=== PATIENT | female | born 1950 | race Caucasian/White ===

== ENCOUNTER 2024-12-14 12:05 | Outpatient (CLI) | payer MEDICARE, SELFPAY ==
--- OUTSIDE RECORDS SUMMARY | 2024-11-08 14:30 | XMS_ITS | Encounter Summary ---
Author Organization [facility] Address [address] [place] [address] Care Team Providers Care Route Carrier Name Role Phone Lakshmi Reynolds TRIM SAWYER Primary Care Provider [phone] Reason for Visit * Reason Comments Difficulty Urinating Encounter Details Date Type Department Care Team (Late st Contact Info) Description 2024 2:30 PM EDT Office Visit [facility] PRIMARY CARE [address] [place] [phone] Lakshmi Reynolds, TRIM SAWYER [address] [place], [place] [id number] Dysuria (Primary Dx); Acute cystitis with hematuria Social History Tobacco Use Types Packs/Day Years Used Date Smoking Tobacco: Never Passive Smoke Exposure: Past Smokeless Tobacco: Never Alcohol Use Standard Drinks/Week Comments Never 0 (1 standard drink = 0.6 oz pur e alcohol) does not utilize alcohol PHQ-2 Answer Date Recorded Retired PHQ-9: Brief Depression Severity Measure Score 0 09/15/2022 PHQ-2 Answer Date Recorded Patient Health Questionnaire-2 Score 0 2024 Comments Unknown Sex and Gender Information Value Date Recorded Sex Assigned at Not on file Legal Sex Female 9:58 AM EDT Gender Identity Not on file Sexual Orientation Not on file documented as of this encounter Last Filed Vital Signs Vital Sign Reading Time Taken Comments Blood Pressure - - Pulse 74 2024 2:47 PM EDT Temperature 36.6 C (97.9 F) 2024 2:47 PM EDT Respiratory Rate 16 2024 2:47 PM EDT Oxygen Saturation 98% 2024 2:47 PM EDT Inhaled Oxygen Concentration - - Weight 86.2 kg (190 lb) 2024 2:47 PM EDT Height 157.5 cm (5' 2 ) 2024 2:47 PM EDT Body Mass Index 34.75 2024 2:47 PM EDT documented in this encounter Functional Status documented as of this encounter Progress Notes * Lakshmi Reynolds APRN - 11/16/2024 7:35 AM EDTAssociated Problem(s): Acute cystitis with hematuria Patient urinalysis in office today with 1+ blood small leukocytes and positive nitrites. Patient states she had muscular pain in the past. Her last UTI was unresponsive to Macrobid. Will treat today with tetracycline 500 mg 3 times daily for 7 days. Patient has prescription for Pyridium to help with discomfort until antibiotics take effect. Patient regularly takes cranberry pills and has recentlyincreased her water consumption. Advised if no improved * Lakshmi Reynolds APRN - 2024 2:30 PM EDT Images from the original note were not included. Office Note Name: Arely Mendoza : 1950 Chief Complaint Difficulty Urinating Subjective History of Present Illness: Arely Mendoza is a 74 y.o. female who presents today for evaluation of possible UTI. Patient states 4days ago she began to experience random chilling on awakening Tuesday morning she continued to haveepisodes of chilling and developed burning with urination. She denies any different low back pain, she suffers from back pain at baseline for many years. No rafia hematuria, feelings of urinary retention. She does endorse frequency and urgency. 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 Headache ? Hypertension Hypothyroidism Possible occult hypothyroidism. IBS (irritable bowel syndrome) History of IBS, followed by Dr. Caro Microscopic hematuria Chronic microscopic hematuria, fully evaluated Obesity Caused by meds and illness Pain in right shoulder Renal insufficiency 50???s Subacute and chronic vaginitis Urinary tract infection Ongoing Past Surgical History: Procedure Laterality Date CHOLECYSTECTOMY COLONOSCOPY 2006, diverticulosis and internal hemorrhoids. COLONOSCOPY 10/04/2012 Dr. Caro, revealing a polyp in the cecum, polyp in the descending colon, both removed, moderate internal hemorrhoids, small anal fissure, but no specific mention of diverticulosis, rec for rpt colonoscopy in 5yrs. colonoscopy 02/03/2015 bc of the issue of pain in the LLQ of the abdomen rectal bleedi ng.This proved to show only mild diverticulosis in the sigmoid colon.Rec was for followup in 5yrs. ENDOSCOPY 2006 ENDOSCOPY EGD 02/03/2015: Hiatus hernia. Esophagitis and distal third of the esophagus. Esophageal ring, dilated Mild gastritis. Normal duodenum MUSCLE BIOPSY SPINE SURGERY 2014 & 2016 Family History Problem Relation Age of Onset Colon polyps Sister Heart disease Other Asthma Father Hyperlipidemia Father Vital Signs Pulse 74 Temp 97.9 ??F (36.6 ??C) (Temporal) Resp 16 Ht 157.5 cm (62 ) Wt 86.2 kg (190 lb) SpO2 98% BMI 34.75 kg/m?? Estimated body mass index is 34.75 kg/m?? as calculated from the following: Height as of this encounter: 157.5 cm (62 ). Weight as of this encounter: 86.2 kg (190 lb). Facility age limit for growth %yusuf is 20 years. Physical Exam Vitals reviewed. Cardiovascular: Rate and Rhythm: Normal rate and regular rhythm. Pulses: Normal pulses. Heart sounds: Normal heart sounds. Pulmonary: Effort: Pulmonary effort is normal. Breath sounds: Normal breath sounds. Abdominal: General: Bowel sounds are normal. Palpations: Abdomen is soft. Tenderness: There is no abdominal tenderness. There is no right CVA tenderness, left CVA tenderness, guarding or rebound. Skin: General: Skin is warm and dry. Neurological: Mental Status: She is alert and oriented to person, place, and time. POCT Results (if applicable): Results for orders placed or performed in visit on 11/08/24 POC Urinalysis Dipstick Collection Time: 11/08/24 2:58 PM Specimen: Urine Result Value Ref Range Glucose, UA Negative Negative mg/dL Bilirubin Negative Negative Ketones, UA Negative Negative Specific Sturgeon 1.030 1.005 - 1.030 Blood, UA 1+ (A) Negative pH, Urine 5.5 5.0 - 8.0 Protein, POC 1+ (A) Negative mg/dL Urobilinogen, UA 0.2 E.U./dL Normal, 0.2 E.U./dL Leukocytes Small (1+) (A) Negative Nitrite, UA Positive (A) Negative Assessment and Plan Diagnoses and all orders for this visit: 1. Dysuria (Primary) - POC Urinalysis Dipstick 2. Acute cystitis with hematuria Assessment & Plan: Patient urinalysis in office today with 1+ blood small leukocytes and positive nitrites. Patient states she had muscular pain in the past. Her last UTI was unresponsive to Macrobid. Will treat today with tetracycline 500 mg 3 times daily for 7 days. Patient has prescription for Pyridium to help with discomfort until antibiotics take effect. Patient regularly takes cranberry pills and has recentlyincreased her water consumption. Advised if no improved Orders: - tetracycline (ACHROMYCIN,SUMYCIN) 500 MG capsule; Take 1 capsule by mouth 3 (Three) Times a Day for 7 days. Dispense: 21 capsule; Refill: 0 Follow Up Return if symptoms worsen or fail to improve. Lakshmi Reynolds APRN documented in this encounter Plan of Treatment Upcoming Encounters Date Type Department Care Team (Late st Contact Info) Description 01/07/2025 2:00 PM EDT Office Visit [facility] PRIMARY CARE [address] [place] [phone] Lakshmi Reynolds APRN [address] [place] [address] 04/08/2025 2:30 PM EST Office Visit [facility] RHEUMATOLOGY [address] [place] [phone] Cordell Manzano MD [address] [place], [place] [id number] documented as of this encounter Procedures Procedure Name Priority Date/Time Associated Diagnosis Comments POCT URINALYSIS DIPSTICK, MANUAL Routine 2024 2:58 PM EDT Dysuria documented in this encounter Results * (ABNORMAL) POC Urinalysis Dipstick (2024 2:58 PM EDT) Glucose, UA Negative Negative mg/dL [facility] Bilirubin Negative Negative [facility] Ketones, UA Negative Negative [facility] Specific Sturgeon 1.030 1.005 - 1.030 [facility] Blood, UA 1+(A) Negative [facility] pH, Urine 5.5 5.0 - 8.0 [facility] Protein, POC 1+(A) Negative mg/dL [facility] Urobilinogen, UA 0.2 E.U./dL Normal, 0.2 E.U./dL [facility] Leukocytes Small (1+)(A) Negative [facility] Nitrite, UA Positive(A) Negative [facility] Urine 2024 2:58 PM EDT us Lakshmi Reynolds TRIM SAWYER POINT OF CARE TEST ORDERABL ES Final Result [facility]
[address] [place] [address], documented in this encounter Visit Diagnoses Diagnosis Dysuria- Primary Acute cystitis with hematuria documented in this encounter Care Teams Route Carrier Relationship Specialty Start Date End Date Lakshmi Reynolds APRN [address] [place], [place] [phone] PCP - General Family Medicine 01/06/22 documented as of this encounter
--- OUTSIDE RECORDS SUMMARY | 2024-12-03 13:30 | XMS_ITS | Encounter Summary ---
Author Organization Healthcare Address [address] [place] [address] Care Team Providers Care Miner Pick Name Role Phone Ahmet Mercado MD Primary Care Provider [phone] Lakshmi Reynolds FIRE PATROL Unavailable [phone] Encounter Details Date Type Department Care Team (Latest Contact Info) Description 12/03/2024 1:30 PM EDT Office Visit [facility] Audiology [address] [place] [address] Valerie Costello, AuD [address] [place] [address] Sensorineural hearing loss, bilateral; Tinnitus of both ears Social History Tobacco Use Types Packs/Day Years Used Date Smoking Tobacco: Never Smokeless Tobacco: Never Alcohol Use Standard Drinks/Week Comments No 0 (1 standard drink = 0.6 oz pur e alcohol) PHQ-2 Answer Date Recorded Patient Health Questionnaire-2 Score 0 07/16/2024 PHQ-2A Answer Date Recorded Patient Health Questionnaire-2 Score 0 01/05/2023 Comments No Sex and Gender Information Value Date Recorded Sex Assigned at Not on file Legal Sex Female 7:32 PM EDT Gender Identity Not on file Sexual Orientation Not on file documented as of this encounter Miscellaneous Notes * Progress Notes - Valerie Costello, AuD - 12/03/2024 1:30 PM EDT Images from the original note were not included. AUDIOLOGIC EVALUATION Referring Provider: Ahmet Mercado MD HISTORY: Arely Mendoza is a 74 y.o. female seen today for an audiologic evaluation. She was last seen on 11/15/2023 with normal hearing through 6000 Hz sloping to moderately- severe SNHL bilaterally. Today she reported stable hearing with occasional tinnitus bilaterally. No other significant audiological historyor changes were reported. RESULTS: Otoscopy: Clear external auditory canals bilaterally Audiogram: Method: Conventional Audiometry Transducer: inserts Results: Today's comprehensive audiologic evaluation demonstrated normal hearing sloping to moderately-severe sensorineural hearing loss bilaterally. Stable compared to Word Recognition: RE: 100%; Excellent LE: 100%; Excellent SRT/Audiogram Agreement: Good Reliability: Good RECOMMENDATIONS: - Re-evaluate in 1 year per patient request Valerie Medellin, [facility] Consumer Services Advisor documented in this encounter Plan of Treatment Upcoming Encounters Date Type Department Care Team ([facility] st Contact Info) Description 04/15/2025 12:00 PM EST Office Visit [facility] Nephrology, Bone & Mineral Metabolism [address], [address] [place] [address] Millie Garcia MD [address] [place] [address] 08/15/2025 3:00 PM EDT Ovarian Cancer Screening [facility] Gynecology [address] [facility] [place] [address] Scheduled Orders Name Type Priority Associated Diagnoses Orde r Schedule Hearing examination 30 Audiology Routine Sensorineural hearing loss, bilateral Expected: 12/03/2025, Expires: 06/02/2026 documented as of this encounter Visit Diagnoses Diagnosis Sensorineural hearing loss, bilateral Tinnitus of both ears Unspecified tinnitus documented in this encounter Additional Health Concerns Assessment Noted Time A fall risk assessment has been complete d for the patient 07/16/2024 12:08 PM EDT A Body Mass Index follow-up plan has been documented for the patient 12/03/2024 3:36 PM EDT documented as of this encounter Care Teams Miner Pick Relationship Specialty Start Date End Date Ahmet Mercado MD [address] [place] [id number] PCP - General 12/14/21 Lakshmi Reynolds APRN [address] [place] [phone] Referring Physician 11/15/24 documented as of this encounter
[2024-12-14 12:12] LABS: Adenovirus F 40/41, stool Not Detected (NotDetected); Clostridium Difficile A/B, PCR Not Detected (NotDetected); Cyclospora Cayetanesis Not Detected (NotDetected); Plesimonas Shigalloides, PCR Not Detected (NotDetected); Salmonella, PCR Not Detected (NotDetected); Shiga-like toxin E coli Not Detected (NotDetected); Shigella Enterovasive E coli Not Detected (NotDetected); Vibrio, PCR Not Detected (NotDetected); Yersinia Entercolitica, PCR Not Detected (NotDetected)
--- OUTSIDE RECORDS SUMMARY | 2024-12-14 12:12 | XMS_ITS | Clinical Summary ---
Author Organization [facility] Address [address] [place] [address] Care Team Providers Care Paper Folder Name Role Phone Ahmet Mercado MD Primary Care Provider [phone] Lakshmi Reynolds COTTAGE SUPERVISOR Unavailable [phone] Allergies Active Allergy Reactions Criticality Noted Date Comments Acetaminophen Nausea 11/23/2021 Amlodipine Shortness of breath,Swelling High 023 Hydrocodone Unknown - Patient st ates they do not know rxn details Low 02/14/2017 Ibuprofen Other - please docum ent in the comment field Low 01/02/2024 Naproxen Unknown - Patient st ates they do not know rxn details Low 02/14/2017 Olmesartan Rash Low 10/26/2023 Other Other - please docum ent in the comment field Medium 11/16/2021 QNasl Penicillins Shortness of breath, Other - please document in the comment field,Rash,Unknown - Patient states they do not know rxn details High 10/30/2013 Tramadol Other - please docum ent in the comment field Low 01/02/2024 Medications naloxegol oxalate (Movantik) 12.5 MG tablet Take 12.5 mg by mouth 1 (one) time each day. 2 Active zolpidem (Ambien) 5 MG tablet TAKE 1 TABLET BY MOUTH AT NIGHT NEEDED FOR INSOMNIA 3 Active oxyCODONE (Roxicodone) 5 MG immediate release tablet Take 0.5 tablets (2.5 mg) by mouth 1 (one) time each day. Patient reports she takes half a tablet. 3 Active estradiol (Estrace) 0.1 MG/GM vaginal cream INSERT 1 GRAM VAGINALLY UP TO 3 TIMES WEEKLY 5 Active famotidine (Pepcid) 10 MG tablet Take 1 tablet by mouth twice a day. Active telmisartan (MIcarDIS) 80 MG tablet Take 1 tablet by mouth daily. 90 tablet 3 5 Active metoprolol tartrate (Lopressor) 50 MG tablet Take 1 tablet by mouth 2 times a day. 180 tablet 3 5 Active Active Problems Problem Noted Date Diagnosed Date Urge incontinence 09/15/2022 01/05/2023 Overview (01/05/2023): Last Assessment & Plan: Patient with complaints of urge incontinence today. This has occurred intermittently for several years now but seems to be more frequent in nature. He notes particularly if she has been sitting for long periods of time, when she stands up she has been able to make it to the bathroom. No dysuria, burning or low back pain. -We will initiate Myrbetriq 25 mg once daily and monitor for effect Dysuria 09/06/2022 01/05/2023 Overview (01/05/2023): Last Assessment & Plan: complaints of difficulty urinating. She notes a few days ago she began to have mild burning with urination as well as some suprapubic pressure. Last night she had significant nocturia/frequency prompting her to come in for evaluation today. sHe has history of chronic UTI, having been evaluated by urology in the past without abnormal findings on cystoscopy, was recently treated with ciprofloxacin on June 29. She denies any vaginal discharge or itching. She does note she feels like it may have been caused by getting in the hot tub with her granddaughter last week. Denies fever or back pain different from her baseline pain. Urinalysis showing only mild leukocytes, likely contaminated specimen. We will send for culture to definitively rule out UTI. -Encouraged ongoing increased water consumption -We will send prescription for Pyridium for symptom management culture results are pending -In regards to cranberry juice consumption she notes it is hard on her stomach. Is willing to try cranberry pills. -If urine culture is inconclusive and she continues to have symptoms may need to be seen back to urology for further evaluation Subacromial bursitis of right shoulder joint 01/05/2023 Overview (01/05/2023): Last Assessment & Plan: Patient complaints of right shoulder tenderness and positional pain for the last 2 weeks. Pain is most significant with raising her arm above her head. She has had similar issues in the past. Reports her current pain receives good benefit from hot compress, however makes note that her regularly scheduled oxycodone provided no pain relief, she is unable to take NSAIDs due to decreased kidney function. On physical exam, findings consistent with subacromial bursitis of the right shoulder joint. Tells me she has suffered from the same injury in the past with good response to steroids and physical therapy. -Short course of prednisone therapy, 40 mg daily for 5 days. -Advised ongoing use of heat compress 3-4 times daily -We will refer for evaluation and treatment with physical therapy Chronic renal disease 11/20/2021 01/05/2023 Overview (01/05/2023): Chronic renal disease, status post consult [facility] Last Assessment & Plan: Followed by [facility], Creatinine 1.65 on check two months ago. At that time losartan was decreased. Will need recheck on next visit Hypothyroidism 11/20/2021 01/05/2023 Overview (01/05/2023): Possible occult hypothyroidism. Last Assessment & Plan: Possible occult hypothyroid. 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 Manzano with rheumatology Hypertension 05/23/2015 01/05/2023 Overview (01/05/2023): Last Assessment & Plan: Pressure well controlled on current medications including 150 mg once daily and metoprolol 50 mg twice daily IBS (irritable bowel syndrome) 05/21/2015 1 Overview (01/05/2023): History of IBS, followed by Dr. Caro Chronic cervical pain 06/25/2014 01/05/2023 Overview (01/05/2023): Last Assessment & Plan: Longstanding issue, however, pain has been worsened due to poor posture during reading for prolonged periods. Her neck is stiff and sore, cervical tenderness on palpation noted with limited range of motion. -Treat with tapering dose of steroids as directed -If no improvement with anti-inflammatory medications will send for imaging study Low back pain 06/25/2014 01/05/2023 Cervical spondylosis with myelopathy 06/24/2014 01/05/2023 Diverticulitis of sigmoid colon 02/25/2014 01/05/2023 Anal fissure 10/30/2013 01/05/2023 Gastrointestinal disorder 10/30/20132022 Kidney disease 10/30/2013 01/05/2023 Resolved Problems Problem Noted Date Diagnosed Date Resolved Date Acute cystitis without hematuria 06/29/2022 01/06/2012/02/2024 Overview (01/05/2023): Last Assessment & Plan: Burning with urination and well as suprapubic discomfort. Feelings of frequency and urgency as well. UA +leukocytes and blood. Due to multiple allergies will treat with cipro as written. Suggest over the counter AZO for symptom management. Encouraged adequate water consumption of at least 60 oz daily. Subluxation 09/02/2014 01/05/2023 12/02/2024 Encounters Date Type Department Care Team Description 12/03/2024 1:30 PM EDT Office Visit [facility] Audiology [address], [address] [place] [phone] Valerie Costello, Lacie Sensorineural hearing loss, bilateral; Tinnitus of both ears 12/03/2024 Travel 09/13/2024 Telephone [facility] Audiology [address], [address] [place] [address] Sofia Reyes from Last 3 Months Immunizations Immunization Administration Dates Next Due Influenza, Unspecified 11/21/2020 Influenza, high-dose, quadrivalent 11/30/2022,,12/06/2019 Pneumococcal, Unspecified 05/01/2012 Family History Medical History Relation Name Comments Hypertension Father Osteoporosis Mother Conversions - Other Other neoplasm of breast Relation Name Status Comments Father Mother Other Social History Tobacco Use Types Packs/Day Years [...] on file Sexual Orientation Not on file Last Filed Vital Signs Vital Sign Reading Time Taken Comments Blood Pressure 139/79 07/16/2024 12:27 PM EDT RN BP recheck; Pt denies dizziness, headache, vision changes, SOA, chest pain Pulse 66 07/16/2024 12:01 PM EDT Temperature 36.9 C (98.4 F) 07/16/2024 12:01 PM EDT Respiratory Rate 18 07/16/2024 12:0 1 PM EDT Oxygen Saturation 95% 07/16/2024 12: 01 PM EDT Inhaled Oxygen Concentration - - Weight 85.5 kg (188 lb 7.9 oz) 07/16/2024 12:01 PM EDT Height 160 cm (5' 3 ) 07/16/2024 12:01 PM EDT Body Mass Index 33.39 07/16/2024 12:01 PM EDT Plan of Treatment Upcoming Encounters Date Type Department Care Team (Late st Contact Info) Description 04/15/2025 12:00 PM EST Office Visit [facility] Nephrology, Bone [facility] Mineral Metabolism [address], [address] [place] [address] Millie Garcia MD [address] [place] [address] 08/15/2025 3:00 PM EDT Ovarian Cancer Screening [facility] [address] [place] [address] Health Maintenance Due Date Last Done Comments [facility]-Bone Density Scan 1950 [facility]-/Child/Adol SDOH Screenings 1950 [facility]- SDOH Screenings 11/09/1967 [facility]-Adult SDOH Screenings 11/09/1967 [facility]-DTaP,Tdap,and Td Vaccines (1 - Tdap) 1968 CT Colonography 1994 Colonoscopy 1994 FIT-DNA 1994 FIT 1994 FOBT 1994 Sigmoidoscopy 1994 [facility]-Colorectal Cancer Screening 1994 [facility]-Pneumococcal Vaccine: 50+ Years (1 of 1 - PCV) 11/09/1999 05/01/2012 [facility]-Zoster Vaccines (1 of 2) 11/09/1999 [facility]-RSV Vaccine: 60+ Years or (1 - 1-dose 75+ series) 2024 [id number]-63 Vaccine ( - season) 2024 12/08/2020, 05/22/2020, 05/01/2020 [facility]-Influenza Vaccine (#1) 11/12/202412/27, 11/30/2022, 11/23/2021, Additional history exists [facility]-Medicare Annual Wellness (AWV) 01/17/2025 01/18/2024, 09/15/2022 [facility]-Depression Screening 07/16/2025 07/16/2024 [facility]-Hepatitis C Screening Completed 09/28/2022 [facility]-Breast Cancer Screening Discontinued 08/2022, 12/17/2022, 12/14/2021, Additional history exists [facility]-Obesity Intervention Completed 025, 07/16/2024, 01/02/2024, Additional history exists HPV Vaccines Aged Out No longer eligi ble based on patient's age to complete this topic [facility]-HIB Vaccines Aged Out No longer e ligible based on patient's age to complete this topic [facility]-Hepatitis A Vaccines Aged Out No longer eligible based on patient's age to complete this topic [facility]-IPV Vaccines Aged Out No longer e ligible based on patient's age to complete this topic [facility]-Rotavirus Vaccines Aged Out No lo nger eligible based on patient's age to complete this topic Procedures Procedure Name Priority Date/Time Associated Diagnosis Comments MAMMOGRAPHY BREAST SCREENING TOMOSYNTHESIS BILATERAL Routine 12/17/2022 3:50 PM EDT Visit for screening mammogram from Last 3 Months or Most Recently Relevant to Health Maintenance Results * Mammography Breast Screening Tomosynthesis Bilateral (12/17/2022 3:50 PM EDT) Anatomical Region Laterality Modality Breast Bilateral Mammography Impressions 01/04/2023 9:17 AM EDT No mammographic evidence of malignancy. BI-RADS CATEGORY: Overall: 2 - Benign RECOMMENDATION: - Routine Screening Mammogram in 1 Year. Patient Lifetime Risk Score of Breast Malignancy: A risk score has not been calculated for this patient. This risk assessment is calculated using the Mona Risk Assessment model which may underestimate the lifetime risk of breast malignancy. COMMUNICATION: Computer-aided detection (CAD) and tomosynthesis were utilized by the radiologist in the interpretation of this examination. The results and recommendations will be sent to the patient in a printed lay language version of the imaging report. Narrative 01/04/2023 9:17 AM EDT EXAM: Mammography Breast Screening with Tomosynthesis REASON FOR EXAM: Screening Mammogram HISTORY: Patient is 72 y.o. Hormone history includes other (estradiol). Surgical and procedural history include right breast biopsy, 01/15/2022 (ultrasound core-FIBROADENOMATOID CHANGES WITH COARSE STROMAL CALCIFICATIONS). COMPARISON STUDIES: Compared to: 10/06/2017 Mammography Breast Screening Tomosynthesis Bilateral at [facility] 11/14/2018 Mammography Breast Screening Tomosynthesis Bilateral at [facility] 12/14/2021 Mammography Breast Screening Tomosynthesis Bilateral at [facility] 12/28/2021 Mammography Breast Diagnostic Tomosynthesis Right at [facility] 12/28/2021 US Breast Limited Right at [facility] 01/15/2022 US Guided Breast Biopsy Right at [facility] 01/15/2022 Mammography Breast Post Biopsy Clip Right at [facility] 07/15/2022 Mammography Breast Diagnostic Tomosynthesis Right at [facility] 07/15/2022 US Breast Limited Right at [facility] BREAST COMPOSITION: The breasts are heterogeneously dense, which may obscure small masses. FINDINGS: There is a stable post-biopsy clip(s) present in the right breast. There is no evidence of suspicious masses, calcifications, or other abnormal findings. us Ahmet Mercado MD IMG BI PROCEDURES Final Result from Last 3 Months or Most Recently Relevant to Health Maintenance Insurance [employer]ARE Care Teams Paper Folder Relationship Specialty Start Date End Date Ahmet Mercado MD [address] [place] [address] PCP - General 12/14/21 Lakshmi Reynolds APRN [address] [place] [address] Referring Physician 11/15/24
--- OUTSIDE RECORDS SUMMARY | 2024-12-14 12:12 | XMS_ITS | Encounter Summary ---
Author Organization [facility] Address [address] [place] [address] Care Team Providers Care Experimental Welder Name Role Phone Lakshmi Reynolds TRANSFORMATION SPECIALIST Primary Care Provider [phone] Encounter Details Date Type Department Care Team (Late st Contact Info) Description 11/09/2024 Telephone [facility] [address] [place] [phone] Lakshmi Reynolds APRN [address] [place] [address] Social History Tobacco Use Types Packs/Day Years [...] as of this encounter Miscellaneous Notes * Telephone Encounter - Carmen Salazar MA - 11/09/2024 11:28 AM EDT Called and left a message advising patient that rx is at the pharmacy * Telephone Encounter - Lakshmi Reynolds APRN - 11/09/2024 11:05 AM EDT Tetra has been sent * Telephone Encounter - Berhane Song RegSched Rep - 11/09/2024 9:48 AM EDT Caller: Arely Mendoza Relationship: Self Best call back number: Telephone Information: What medication are you requesting: TETRACYCLINE - THE MEDICATION SHE WAS SUPPOSED TO GET ON 11/08/24 FOR UTI If a prescription is needed, what is your preferred pharmacy and phone number: [id number] - [place], [place] - [address] [facility] & - [phone] - [phone] Additional notes: PATIENT ADVISED SHE NEEDS MED BY TODAY BECAUSE PHARMACY IS NOT OPEN ON THE WEEKENDS, WASN'T CALLED IN YESTERDAY documented in this encounter Plan of Treatment Upcoming Encounters Date Type Department Care Team (Late st Contact Info) Description 01/07/2025 2:00 PM EDT Office Visit [facility] [address] [place] [address] [place] [address] Lakshmi Reynolds APRN [address] [place] [address] 04/08/2025 2:30 PM EST Office Visit [facility] RHEUMATOLOGY [address] [address] Cordell Manzano MD [address] [phone] documented as of this encounter Visit Diagnoses Not on filedocumented in this encounter Care Teams Experimental Welder Relationship Specialty Start Date End Date Lakshmi Reynolds APRN [address] [place] [address] PCP - General Family Medicine 01/06/22 documented as of this encounter
--- OUTSIDE RECORDS SUMMARY | 2024-12-14 12:12 | XMS_ITS | Encounter Summary ---
Author Organization [facility] Address [address] [place] [address] Care Team Providers Care Radiation Oncologist Name Role Phone Lakshmi Reynolds APRN Primary Care Provider Encounter Details Date Type Department Care Team (Late st Contact Info) Description 11/15/2024 Patient rounding ([facility] only) [facility] [address] [place] [phone] Enid Ling Social History Tobacco Use Types Packs/Day Years [...] on file documented as of this encounter Progress Notes * Yue Raya RegSched Rep - 11/15/2024 4:04 PM EDTSummary: Rounding .A zeenworld message has been sent to the patient for patient rounding with [facility]. documented in this encounter Plan of Treatment Upcoming Encounters Date Type Department Care Team (Late st Contact Info) Description 01/07/2025 2:00 PM EDT Office Visit [facility]IMARY [facility] [address] [place] [phone] Lakshmi Reynolds APRN [address] [place] [address] 04/08/2025 2:30 PM EST Office Visit [facility] RHE[facility] [address] [address] Cordell Manzano MD [address] [address] documented as of this encounter Visit Diagnoses Not on filedocumented in this encounter Care Teams Radiation Oncologist Relationship Specialty Start Date End Date Lakshmi Reynolds, JEFERSON [address] [place] [address] PCP - General Family Medicine 01/06/22 documented as of this encounter
--- OUTSIDE RECORDS SUMMARY | 2024-12-14 12:12 | XMS_ITS | Encounter Summary ---
Author Organization [facility] Address [address] [place] [address] Care Team Providers Care Regional Environmental Manager Name Role Phone Ahmet Mercado MD Primary Care Provider [phone] Lakshmi Reynolds TOOLMAKER GRADE THREE Unavailable [phone] Encounter Details Date Type Department Care Team (Latest Contact Info) Description 12/03/2024 Travel Social History Tobacco Use Types Packs/Day Years [...] on file documented as of this encounter Plan of Treatment Upcoming Encounters Date Type Department Care Team (Late st Contact Info) Description 04/15/2025 12:00 PM EST Office Visit [facility]eral Met[facility] [address], [address] [place] [address] Millie Garcia MD [address] [place] [address] 08/15/2025 3:00 PM EDT Ovarian Cancer Screening [facility] Gynecology [address] [place] [phone] documented as of this encounter Visit Diagnoses Not on filedocumented in this encounter Additional Health Concerns Assessment Noted Time A fall risk assessment has been complete d for the patient 07/16/2024 12:08 PM EDT A Body Mass Index follow-up plan has been documented for the patient 12/03/2024 3:36 PM EDT documented as of this encounter Care Teams Regional Environmental Manager Relationship Specialty Start Date End Date Ahmet Mercado MD [address] [place] [address] PCP - General 12/14/21 Lakshmi Reynolds APRN [address] [place] [address] Referring Physician 11/15/24 documented as of this encounter
--- OUTSIDE RECORDS SUMMARY | 2024-12-14 12:12 | XMS_ITS | Encounter Summary ---
Author Organization [facility] Address [address] [place] [address] Care Team Providers Care Sulfonator Operator Name Role Phone Lakshmi Reynolds DATA PROCESSING SPECIALIST Primary Care Provider [phone] Reason for Visit * Reason Onset Date Comments Med Refill 11/07/2024 Encounter Details Date Type Department Care Team (Late st Contact Info) Description 11/07/[address] [facility] PRIMARY CARE [address] [place] [phone] Lakshmi Reynolds, DATA PROCESSING SPECIALIST [address] [place], [place] [phone] Chronic right-sided low back pain without sciatica Social History Tobacco Use Types Packs/Day Years [...] encounter Miscellaneous Notes * Telephone Encounter - Dorene Monaco RegPriyanka Rep - 11/07/2024 11:15 AM EDT Caller: Arely Mendoza Relationship: Self Best call back number: [phone] Requested Prescriptions: Requested Prescriptions Pending Prescriptions Disp Refills oxyCODONE (ROXICODONE) 5 MG immediate release tablet 30 tablet 0 Si/2-1 tablet daily as needed for pain Pharmacy where request should be sent: [id number] - [place], [place] - [address] & - [phone] - [phone] FX Last office visit with prescribing clinician: 09/05/2024 Last telemedicine visit with prescribing clinician: Visit date not found Next office visit with prescribing clinician: 01/07/2025 Does the patient have less than a 3 day supply: [x] Yes [] No Would you like a call back once the refill request has been completed: [] Yes [x] No If the office needs to give you a call back, can they leave a voicemail: [] Yes [x] No Isaac Jefferson 11/07/24 11:15 EDT documented in this encounter Plan of Treatment Upcoming Encounters Date Type Department Care Team (Late st Contact Info) Description 01/07/2025 2:00 PM EDT Office Visit [facility] PRIMARY [facility]ARE [address] [place] [phone] Lakshmi Reynolds APRN [address] [place] [address] 04/08/2025 2:30 PM EST Office Visit [facility] RHEUMATOLOGY [address] [address] Cordell Manzano MD [address] [place] [address] [phone] documented as of this encounter Visit Diagnoses Diagnosis Chronic right-sided low back pain without sciatica documented in this encounter Care Teams Sulfonator Operator Relationship Specialty Start Date End Date Lakshmi Reynolds APRN [address] [place] [address] PCP - General Family Medicine 01/06/22 documented as of this encounter
--- OUTSIDE RECORDS SUMMARY | 2024-12-14 12:12 | XMS_ITS | Encounter Summary ---
Author Organization [facility] Address [facility] [place] [address] Care Team Providers Care Email Manager Name Role Phone Lakshmi Reynolds INSPECTOR PRECISION ASSEMBLY Primary Care Provider [phone] Reason for Visit * Reason Comments Med Refill Encounter Details Date Type Department Care Team (Late st Contact Info) Description 11/02/2024 Refill [facility] [address] [place] [address] [place] [address] Lakshmi Reynolds APRN [address] [place], [place] [phone] Chronic insomnia Social History Tobacco Use Types Packs/Day Years Used Date Smoking Tobacco: Never Passive Smoke Exposure: Past Smokeless Tobacco: Never Alcohol Use Standard Drinks/Week Comments Never 0 (1 standard drink = 0.6 oz pur e alcohol) does not utilize alcohol PHQ-2 Answer Date Recorded Retired PHQ-9: Brief Depression Severity Measure Score 0 09/15/2022 PHQ-2 Answer Date Recorded Patient Health Questionnaire-2 Score 0 09/05/2024 Comments Unknown Sex and Gender Information Value Date Recorded Sex Assigned at Not on file Legal Sex Female 9:58 AM EDT Gender Identity Not on file Sexual Orientation Not on file documented as of this encounter Plan of Treatment Upcoming Encounters Date Type Department Care Team (Late st Contact Info) Description 01/07/2025 2:00 PM EDT Office Visit [facility] [address] [place] [address] [place] [phone] Lakshmi Reynolds APRN [address] [place], [place] [phone] 04/08/2025 2:30 PM EST Office Visit [facility] RHEUMATOLOG[facility] [address] [address] Cordell Manzano MD [address] [phone] documented as of this encounter Visit Diagnoses Diagnosis Chronic insomnia Insomnia, unspecified documented in this encounter Care Teams Email Manager Relationship Specialty Start Date End Date Lakshmi Reynolds APRN [address] [place] [address] PCP - General Family Medicine 01/06/22 documented as of this encounter
--- OUTSIDE RECORDS SUMMARY | 2024-12-14 12:12 | XMS_ITS | Clinical Summary ---
Author Organization [facility] Address [address] [place] [address] Care Team Providers Care Safety Leader Name Role Phone Lakshmi Reynolds APRN Primary Care Provider Allergies Active Allergy Reactions Criticality Noted Date Comments Amlodipine Swelling,Shortness Of Breath High 023 Hydrocodone Unknown (See Comments) Low 02/14/2017 Ibuprofen Other (See Comments) Low 01/02/2024 Naproxen Unknown (See Comments) Low 02/14/2017 Other Provider Review Needed Medium 11/16/2021 QNasl Penicillins Other (See Comments),Rash Low 5 Tramadol Other (See Comments) Low 01/02/2024 Acetaminophen Nausea Only 11/23/2021 Medications metoprolol tartrate (LOPRESSOR) 50 MG tabletIndication s:Benign hypertension TAKE 1 TABLET BY MOUTH TWICE DAILY 180 tablet 3 11/01/19 24 Active telmisartan (MICARDIS) 80 MG tablet Take 1 tablet by mouth Daily. 10/26/19 24 Active famotidine (PEPCID) 10 MG tablet Take 1 tablet by mouth 2 (Two) Times a Day. Active Movantik 12.5 MG tablet TAKE 1 TABLET BY MOUTH DAILY 90 tablet 1 07/21/19 25 Active estradiol (ESTRACE) 0.1 MG/GM vaginal cream INSERT 1 GRAM VAGINALLY UP TO 3 TIMES WEEKLY 42.5 g 09/28/19 25 Active oxyCODONE (ROXICODONE) 5 MG immediate release tabletIndication s:Chronic right-sided low back pain without sciatica 1/2-1 tablet daily as needed for pain 30 tablet 08/27/20 25 Active zolpidem (AMBIEN) 5 MG tabletIndication s:Chronic insomnia TAKE 1 TABLET BY MOUTH AT NIGHT NEEDED FOR SLEEP 30 tablet 12/06/19 25 Active zolpidem (AMBIEN) 5 MG tabletIndication s:Chronic insomnia TAKE 1 TABLET BY MOUTH AT NIGHT NEEDED FOR SLEEP 30 tablet 11/03/19 25 025 Discontinued tetracycline (ACHROMYCIN,SUMY ARON) 500 MG capsuleIndicatio ns:Acute cystitis with hematuria Take 1 capsule by mouth 3 (Three) Times a Day for 7 days. 21 capsule 11/10/19 25 025 Active Problems Problem Noted Date Diagnosed Date Chronic bilateral low back pain 04/04/2024 Assessment & Plan (04/05/2024 2:40 PM EST): 10/2012 XRAY-DDD WITH ANTEROLISTHESIS L4-5. SURGERY 02/27,. Followed by Pain center Chronic neck pain 04/04/2024 Assessment & Plan (04/05/2024 2:40 PM EST): Severe degenerative disc disease with anterolisthesis at multiple levels. Fusion surgery done 09/25. She has chronic neck pain but no neurologic symptoms. At high risk for osteoporosis 04/04/2024 Assessment & Plan (04/05/2024 2:40 PM EST): Normal DEXA 04/06. Recheck 3 to 4 years from previous. Vaginal atrophy 06/17/2023 Assessment & Plan (09/13/2024 5:47 PM EDT): Currently utilizing estradiol vaginal cream with benefit in regards to irrtation and itching Assessment & Plan (01/18/2024 5:29 PM EST): Currently utilizing estradiol vaginal cream with benefit in regards to irrtation and itching Assessment & Plan (11/27/2023 3:54 PM EDT): Currently utilizing estradiol vaginal cream with benefit in regards to irrtation and itching Assessment & Plan (06/20/2023 2:08 PM EDT): Discussed with patient that her symptoms could be related to vaginal atrophy. She has previously in the past utilize estradiol vaginal cream but has not as of late. Encouraged to reinstitute the estradiol cream and monitor for improvement Encounter for subsequent karissa ua wellness visit (AWV) in Medicare patient 09/15/2022 Assessment & Plan (09/15/2022 1:03 PM EDT): Patient presents today for subsequent annual Medicare wellness visit. Currently up-to-date on mammography and colonoscopy screening. Obtain comprehensive yearly labs today. Chronic conditions as outlined above. Dysuria 09/06/2022 Assessment & Plan (06/20/2023 2:06 PM EDT): complaints of difficulty urinating. She notes a few days ago she began to have mild burning with urination as well as some suprapubic pressure. Last night she had significant nocturia/frequency prompting her to come in for evaluation today. sHe has history of chronic UTI, having been evaluated by urology in the past without abnormal findings on cystoscopy. Urinalysis in office today not indicative of urinary tract infection, will send for culture for verification Assessment & Plan (09/06/2022 12:22 PM EDT): complaints of difficulty urinating. She notes a [...] seen back to urology for further evaluation Acute cystitis with hematuria 06/29/2022 Assessment & Plan (11/16/2024 7:35 AM EDT): Patient urinalysis in office today with 1+ blood small leukocytes and positive nitrites. Patient states she had muscular pain in the past. Her last UTI was unresponsive to Macrobid. Will treat today with tetracycline 500 mg 3 times daily for 7 days. Patient has prescription for Pyridium to help with discomfort until antibiotics take effect. Patient regularly takes cranberry pills and has recently increased her water consumption. Advised if no improved Assessment & Plan (05/07/2024 8:50 AM EST): Patient's urinalysis in office today dark yellow, 1+ blood, small leukocytes and positive nitrites. Will treat empirically with 5-day course of twice daily Macrobid. I am also going to give her a prescription for Pyridium to help with discomfort until antibiotics take effect. Patient advised to not be alarmed when her urine is bright orange. She is also taking cranberry pills and has increased her water consumption. Advise if no improvement Assessment & Plan (06/29/2022 8:23 PM EDT): Burning with urination and well as suprapubic discomfort. Feelings of frequency and urgency as well. UA +leukocytes and blood. Due to multiple allergies will treat with cipro as written. Suggest over the counter AZO for symptom management. Encouraged adequate water consumption of at least 60 oz daily. 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 He has been evaluated by multiple pain management physicians without resolution to her pain. He continues to receive good benefit from oxycodone. Isa reviewed and satisfactory. Repeat urine drug screen obtained today Assessment & Plan (05/11/2022 6:14 PM EST): As usual, we addressed her chronic back pain. Has been evaluated by multiple pain management physicians, then without any resolution to her pain. Most recently she was evaluated by Dr. Juarez who advised SI fusion procedure which after some research and consideration she chose not to pursue. He is continued to have good benefit from low-dose oxycodone 5 mg daily regimen for several years. Her good response without adverse side effects, we will continue her oxycodone for now. We have discussed possible neurosurgical evaluation in the future. Assessment & Plan (02/09/2022 12:45 PM EST): Long conversation with patient regarding her chronic back pain. She has been evaluated by multiple pain management physicians none without any resolution to her pain. Most recently Dr. Brooks would like her to have a SI fusion procedure before considering prescribing her any ongoing low-dose oxycodone 5 mg daily regimen which she has done well with on years. Given her good response without adverse side effects, appropriate urine and ISA screening, we will continue her oxycodone for now. We discussed referral to neurosurgery for further eval. -ISA review -Submit urine drug screen today. Chronic cervical pain 11/20/2021 Assessment & Plan (05/11/2022 6:20 PM EST): Longstanding issue, however, pain has been worsened due to poor posture during reading for prolonged periods. Her neck is stiff and sore, cervical tenderness on palpation noted with limited range of motion. -Treat with tapering dose of steroids as directed -If no improvement with anti-inflammatory medications will send for imaging study Chronic renal disease 11/20/2021 Overview (11/20/2021): Chronic renal disease, status post [facility] Assessment & Plan (01/18/2024 5:31 PM EST): Patient continues to be followed by [facility] for CKD III with baseline creatinine 1.3 range, GFR 42. Assessment & Plan (11/27/2023 3:47 PM EDT): Patient continues to be followed by [facility] for CKD III with baseline creatinine 1.3 range, GFR 42. Assessment & Plan (02/15/2023 9:57 AM EST): Patient previously followed by [facility] with creatinine 1.65. She has now transition to nephrology. Assessment & Plan (02/09/2022 12:48 PM EST): Followed by [facility], Creatinine 1.65 on check two months ago. At that time losartan was decreased. Will need recheck on next visit Dermatomyositis 11/20/2021 Overview (11/20/2021): Followed by Dr. Pawan Merritt, visual merchandising coordinator Assessment & Plan (09/13/2024 5:40 PM EDT): Patient diagnosed with dermatomyositis in 2021, treated with methotrexate and steroids in 2002. She continued this treatment until 2006. Patient continues to be followed by rheumatology yearly with most recent documentation stating her condition has resolved with patient feeling well other than chronic back pain. Assessment & Plan (04/05/2024 2:40 PM EST): ONSET 2001. MTX AND STEROIDS 2002. MTX UNTIL 2006. LOST TO FOLLOWUP UNTIL 2012. The illness has resolved. She has no DM symptoms. She feels well other than chronic back pain. No rash and no weakness. Strength is normal subjectively and objectively. Pt's global disease score is 5 on a 10 pt scale-driven by neck and back pain. Follow up in 1 year: discussed with patient and provided information. Labs from last month normal. Assessment & Plan (01/18/2024 5:31 PM EST): Followed by Dr. Manzano, rheumatology. In the past has utilized both methotrexate and Plaquenil, had to stop methotrexate due to liver enzymes becoming elevated. She was then given a round of steroids which worked well, and remains asymptomatic Assessment & Plan (11/27/2023 3:47 PM EDT): Followed by Dr. Manzano, rheumatology. In the past has utilized both methotrexate and Plaquenil, had to stop methotrexate due to liver enzymes becoming elevated. She was then given a round of steroids which worked well, and remains asymptomatic Assessment & Plan (09/29/2023 4:02 PM EDT): Followed by Dr. Manzano, rheumatology. In the past has utilized both methotrexate and Plaquenil, had to stop methotrexate due to liver enzymes becoming elevated. She was then given a round of steroids which worked well, and remains asymptomatic Assessment & Plan (02/15/2023 9:57 AM EST): Followed by Dr. Manzano, rheumatology. In the past has utilized both methotrexate and Plaquenil, had to stop methotrexate due to liver enzymes becoming elevated. She was then given a round of steroids which worked well, and remains asymptomatic Assessment & Plan (09/15/2022 12:59 PM EDT): Followed by Dr. Manzano with rheumatology Hypertension 11/20/2021 Assessment & Plan (09/13/2024 5:39 PM EDT): Patient's blood pressure is borderline in office today, 138/84. Patient states when checked at home blood pressure generally runs more in the lower 130s over 70s - Continue telmisartan 80 mg daily -Continue metoprolol 50 mg BID Assessment & Plan (01/18/2024 5:31 PM EST): Pressure resuming CHIP control in office today, 128/74. Patient currently utilizes regimen of telmisartan 40 mg daily as well as metoprolol 50 mg Assessment & Plan (11/27/2023 3:53 PM EDT): Patient's BP within acceptable limits in office today, 136/82. Currently utilizing metoprolol 50mg BID and Telmisartin 40mg daily Assessment & Plan (09/29/2023 4:04 PM EDT): Blood pressure within acceptable range, 136/82. Patient currently utilizing regimen of losartan 50 mg and metoprolol 50 mg Assessment & Plan (06/20/2023 2:07 PM EDT): Blood pressure well-controlled in office today, 126/76 -Continue losartan 50 mg daily -Continue metoprolol 50 mg daily Assessment & Plan (02/15/2023 9:56 AM EST): Pressure well controlled on current medications including 150 mg once daily and metoprolol 50 mg twice daily . Assessment & Plan (09/15/2022 12:59 PM EDT): Pressure well controlled on current medications including 150 mg once daily and metoprolol 50 mg twice daily Assessment & Plan (05/11/2022 6:23 PM EST): Recent issues with significant elevation in blood pressure, reporting average systolic pressures of 170-190 with diastolic pressures in triple digits as well. Elevation in blood pressures coinciding with recent flareup of cervical pain. Hope to see improvement with initiation of tapering steroid dose as directed as well as addition of amlodipine 5 mg once daily to her already existing losartan 50 mg once daily regimen for the metoprolol 50 mg twice daily as well. -Instructed to continue home blood pressure log for review on next visit in 2 weeks. Advised to call notify office sooner if blood pressure does not begin to show significant improvement with relief of pain and initiation of amlodipine over the next week Assessment & Plan (02/09/2022 12:41 PM EST): Hypertension is elevated in office today 140/88. She reports labile BP at home, systolic as low at 110 as high as 140. Most recently her losartan was decreased to 25mg due to worsening renal function, HCTZ was stopped and metoprolol increased. -Keep home BP log for review on next visit -low sodium diet -Call office if BP consistently greater than 130/80 IBS (irritable bowel syndrome) 11/20/2021 Overview (11/20/2021): History of IBS, followed by Dr. Caro Assessment & Plan (09/13/2024 5:47 PM EDT): History of IBS, constipation type. 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 Caro in the past before transitioning to Dr. Gardiner. She continues to receive good benefit from daily Movantik Assessment & Plan (01/18/2024 5:30 PM EST): History of IBS, constipation type. 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 Caro in the past before transitioning to Dr. Gardiner. She continues to receive good benefit from daily Movantik Assessment & Plan (09/29/2023 4:05 PM EDT): History of IBS, constipation type. 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 Caro in the past for transitioning to Dr. Gardiner. Zuleyka has now closed his practice leaving her to find a new roller repairer. She continues to receive good benefit from daily Movantik Assessment & Plan (02/15/2023 9:58 AM EST): History of IBS, constipation type. 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 Caro in the past. Continues to receive good benefit from daily Movantik Chronic insomnia 11/20/2021 Assessment & Plan (09/13/2024 5:47 PM EDT): Longstanding pattern of primary insomnia. Continues to receive good benefit from nightly 5 mg Ambien. Is a quality 6 hours of sleep without grogginess or brain fog the next morning. Isa reviewed and satisfactory. UDS and urine drug screen updated. Assessment & Plan (01/18/2024 5:32 PM EST): Longstanding pattern of primary insomnia. Continues to receive good benefit from nightly 5 mg Ambien. Is a quality 6 hours of sleep without grogginess or brain fog the next morning. Isa reviewed and satisfactory. UDS and urine drug screen updated. Assessment & Plan (11/27/2023 3:48 PM EDT): Longstanding pattern of primary insomnia. Continues to receive good benefit from nightly 5 mg Ambien. Is a quality 6 hours of sleep without grogginess or brain fog the next morning. Isa reviewed and satisfactory. UDS and urine drug screen updated. Assessment & Plan (09/29/2023 4:04 PM EDT): Longstanding pattern of primary insomnia. Continues to receive good benefit from nightly 5 mg Ambien. Is a quality 6 hours of sleep without grogginess or brain fog the next morning. Isa reviewed and satisfactory Assessment & Plan (09/15/2022 1:01 PM EDT): On standing pattern of primary insomnia. Continues to receive good benefit from nightly 5 mg Ambien. Is a quality 6 hours of sleep without grogginess or brain fog the next morning. Isa reviewed and satisfactory Assessment & Plan (02/09/2022 12:46 PM EST): Patient reports benefit from nightly ambien. 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 Since that time she has been followed by multiple pain management physicians including [facility] and [facility]. She has been evaluated by Dr. Shipley, Dr. Mena and Dr. Juarez all with pain management. Physical therapy, epidural injections and steroid injections have been of no benefit. Various etiologies have been proposed from each evaluation. [facility] it was felt that musculature had been transected during the procedure which was resulting in significant weakness on that side of her back. The [facility] in [place] and nuclear scan failed to reveal the degree of inflammation that was anticipated. Dr. Juarez proposed pursuing Olaf procedure feeling that her pain is due to sacroiliitis. She declined this procedure. Patient now being followed by pain management, Dr. Whitehead who has done a couple of injections with short term relief, patient has now also undergone ablation which was beneficial. Patient states they have now given consideration to SI fusion as well as stimulator. She hopes this will provide benefit and she will be able to wean off her opiods. ISA satisfactory, UDS and controlled substance agreement signed. Assessment & Plan (01/18/2024 5:31 PM EST): Pain following L4-5 posterior interbody fusion in February 2017. Since that time she has been followed by multiple pain management physicians including [facility] and [facility]. She has been evaluated by Dr. Shipley, Dr. Mena and most recently Dr. Juarez all with pain management. Therapy, epidural injections and steroid injections have been of no benefit. Various etiologies have been proposed from each evaluation. Denies proposed at . He was felt that she was suffering from myofascial pain syndrome with intermittent right lower extremity radiculopathy. [facility] it was felt that musculature had been transected during the procedure which was resulting in significant weakness on that side of her back. The [facility] in [place] and nuclear scan failed to reveal the degree of inflammation that was anticipated. He was last evaluated by Dr. Juarez almost 2 years ago. He proposed pursuing Olaf procedure feeling that her pain is due to sacroiliitis. She declined this procedure. Patient now being followed by pain management, Dr. Whitehead who has done a couple of injections with short term relief, now scheduled for nerve ablation in the next couple of weeks. She hopes this will provide benefit and she will be able to wean off her opiods. ISA satisfactory, UDS and controlled substance agreement signed. Right side no improvement after ablation, felt like left side is better. Assessment & Plan (11/27/2023 3:52 PM EDT): Pain following L4-5 posterior interbody fusion in February 2017. Since that time she has been followed by multiple pain management physicians including [facility] and [facility]. She has been evaluated by Dr. Shipley, Dr. Mena and most recently Dr. Juarez all with pain management. Therapy, epidural injections and steroid injections have been of no benefit. Various etiologies have been proposed from each evaluation. Denies proposed at . He was felt that she was suffering from myofascial pain syndrome with intermittent right lower extremity radiculopathy. [facility] it was felt that musculature had been transected during the procedure which was resulting in significant weakness on that side of her back. The [facility] in [place] and nuclear scan failed to reveal the degree of inflammation that was anticipated. He was last evaluated by Dr. Juarez almost 2 years ago. He proposed pursuing Olaf procedure feeling that her pain is due to sacroiliitis. She declined this procedure. Patient now being followed by pain management, Dr. Whitehead who has done a couple of injections with short term relief, now scheduled for nerve ablation in the next couple of weeks. She hopes this will provide benefit and she will be able to wean off her opiods. ISA satisfactory, UDS and controlled substance agreement signed. Assessment & Plan (09/29/2023 4:04 PM EDT): Pain following L4-5 posterior interbody fusion in February 2017. Since that time she has been followed by multiple pain management physicians including [facility] and [facility]. She has been evaluated by Dr. Shipley, Dr. Mena and most recently Dr. Juarez all with pain management. Therapy, epidural injections and steroid injections have been of no benefit. Various etiologies have been proposed from each evaluation. Denies proposed at . He was felt that she was suffering from myofascial pain syndrome with intermittent right lower extremity radiculopathy. [facility] it was felt that musculature had been transected during the procedure which was resulting in significant weakness on that side of her back. The [facility] in [place] and nuclear scan failed to reveal the degree of inflammation that was anticipated. He was last evaluated by Dr. Juarez almost 2 years ago. He proposed pursuing Parsons procedure feeling that her pain is due to sacroiliitis. She declined this procedure and had not return for further evaluation. She states she is now being referred to a new pain management physician, Dr. Mccain. He is in the process of doing a more targeted treatment, she has had 1 diagnostic injection that has provided some benefit already. He is looking forward to hopefully getting some relief that we will allow her to discontinue regular oxycodone use. Assessment & Plan (06/20/2023 2:06 PM EDT): Pain following L4-5 posterior interbody fusion in February 2017. Since that time she has been followed by multiple pain management physicians including [facility] and [facility]. She has been evaluated by Dr. Shipley, Dr. Mnea and most recently Dr. Juarez all with pain management. Therapy, epidural injections and steroid injections have been of no benefit. Various etiologies have been proposed from each evaluation. Denies proposed at . He was felt that she was suffering from myofascial pain syndrome with intermittent right lower extremity radiculopathy. [facility] it was felt that musculature had been transected during the procedure which was resulting in significant weakness on that side of her back. The [facility] in [place] and nuclear scan failed to reveal the degree of inflammation that was anticipated. He was last evaluated by Dr. Juarez almost 2 years ago. He proposed pursuing Parsons procedure feeling that her pain is due to sacroiliitis. She declined this and does not return for further evaluation. SHe continues to get significant improvement from oxycodone 5 mg half to 1 tablet daily as needed for pain. Assessment & Plan (02/15/2023 9:54 AM EST): Pain following L4-5 posterior interbody fusion in February 2017. Since that time she has been followed by multiple pain management physicians including [facility] and [facility]. She has been evaluated by Dr. Shipley, Dr. Mena and most recently Dr. Juarez all with pain management. Therapy, epidural injections and steroid injections have been of no benefit. Various etiologies have been proposed from each evaluation. Suzy proposed at . He was felt that she was suffering from myofascial pain syndrome with intermittent right lower extremity radiculopathy. [facility] it was felt that musculature had been transected during the procedure which was resulting in significant weakness on that side of her back. The [facility] in [place] and nuclear scan failed to reveal the degree of inflammation that was anticipated. He was last evaluated by Dr. Juarez almost 2 years ago. He proposed pursuing Olaf procedure feeling that her pain is due to sacroiliitis. She declined this and does not return for further evaluation. He continues to get significant improvement from oxycodone 5 mg half to 1 tablet daily as needed for pain. Isa report reviewed and satisfactory, and UDS and controlled substance agreement up-to-date Assessment & Plan (09/15/2022 1:00 PM EDT): . Pain following L4-5 posterior interbody fusion in February 2017. Since that time she has been followed by multiple pain management physicians including [facility] and [facility]. She has been evaluated by Dr. Shipley, Dr. Mena and most recently Dr. Juarez all with pain management. Therapy, epidural injections and steroid injections have been of no benefit. Various etiologies have been proposed from each evaluation. Denies proposed at . He was felt that she was suffering from myofascial pain syndrome with intermittent right lower extremity radiculopathy. [facility] it was felt that musculature had been transected during the procedure which was resulting in significant weakness on that side of her back. The [facility] in [place] and nuclear scan failed to reveal the degree of inflammation that was anticipated. He was last evaluated by Dr. Juarez almost 1 year ago. He proposed pursuing Olaf procedure feeling that her pain is due to sacroiliitis. She declined this and does not return for further evaluation Assessment & Plan (02/09/2022 12:38 PM EST): Postoperative pain following L4-5 posterior interbody fusion in February 2017. Since that time she has been followed by multiple pain management physicians, including [facility] and [facility]. She has been evaluated by Dr. Shipley, Dr. Mena and most recently Dr. Rincon all with pain management. Physical therapy, epidural injections and steroid injections no benefit. Various etiologies have been proposed from each evaluation. Arachnoiditis proposed at . It was felt that she was suffering from myofascial pain syndrome with intermittent right lower extremity radiculopathy. At the [facility] it was felt that musculature had been transected during the procedure which was resulting in significant weakness on that side of her back. At the [facility] in [facility] a nuclear scan failed to reveal the degree of inflammation that was anticipated. Last seen by Dr. Brooks three months ago. He would like to pursue CornerLoc procedure as he feels her pain is due to sacroilitis. She has declined this and not returned. Resolved Problems Problem Noted Date Diagnosed Date Resolved Date URI (upper respiratory infection) 06/17/2023 01/18/2024 Assessment & Plan (06/20/2023 2:08 PM EDT): Onset 5 days ago of nasal congestion, cough and headache. She has also had some chills and fever. She has felt better with ibuprofen. She has been taking delsym without much benefit. Phlem is thickening and becoming difficult to expectorate. No concerning acute lower respiratory findings. Will treat empirically for any bacterial pathogen with azithromycin Z-Tate. Patient will also be provided with Bromfed for cough and congestion. Urge incontinence 09/15/2022 01/18/2024 Assessment & Plan (09/15/2022 12:57 PM EDT): Patient with complaints of urge incontinence today. [...] mg once daily and monitor for effect Subacromial bursitis of right shoulder joint 01/18/2024 Assessment & Plan (09/28/2023 2:23 PM EDT): Now in PT seeing dr medina. Assessment & Plan (06/09/2022 4:46 PM EDT): Patient complaints of right shoulder tenderness and [...] for evaluation and treatment with physical therapy Cervical pain 11/20/2021 01/18/2024 LBP (low back pain) 11/20/2021 09/07/19 Overview (12/14/2021): 12/12 REGULATORY IMPORT REPLACEMENT Cerebral infarct 11/20/2021 09/06/2022 Chronic lumbar pain 11/20/2021 09/07/19 23 Constipation 11/20/2021 09/06/2022 Assessment & Plan (02/09/2022 12:39 PM EST): Well controlled with daily movantik Hypothyroidism 11/20/2021 02/15/2023 Overview (11/20/2021): Possible occult hypothyroidism. Assessment & Plan (09/15/2022 12:58 PM EDT): Possible occult hypothyroid. Checking TSH and T4 today Assessment & Plan (02/09/2022 12:39 PM EST): Possible occult hypothyroidism Subacute and chronic vaginitis 11/20/2021 01/18/2024 Pain in right shoulder 11/20/202101/17 Assessment & Plan (02/15/2023 9:34 AM EST): Worked with PT which was beneficial for an amount of time. She is now being evaluated by ortho, Dr. Stein. Chronic lumbar radiculopathy 05/10/2020 09/06/2022 Arthrodesis status 12/12/2017 3 S/P lumbar laminectomy 12/12/201701/17 Arthropathy of spinal facet joint 12/12/2017 09/06/2022 Lumbosacral spondylosis with radiculopathy 12/12/2017 01/18/2024 Myofascial pain 12/12/2017 09/06/2022 Encounters Date Type Department Care Team Description 12/06/2024 Telephone [facility] [address] [place] [address] [place] [phone] Lakshmi Reynolds, MOLDING CUTTER 12/04/2024 Refill [facility] [address] [place] [address] [place] [phone] Lakshmi Reynolds, MOLDING CUTTER Chronic insomnia 11/15/2024 Patient rounding ([facility]) [facility] [address] [place] [address] [place] [phone] Anuradha Enid 11/09/2024 Telephone [facility] [address] [place] [address] [place] [address] Lakshmi Reynolds APRN 2024 2:30 PM EDT Office Visit [facility] [address] [place] [address] [place] [address] Lakshmi Reynolds, MOLDING CUTTER Dysuria (Primary Dx); Acute cystitis with hematuria 2024 Travel 11/07/2024 Refill [facility] [address] [place] [address] [place] [address] Lakshmi Reynolds, JEFERSON Chronic right-sided low back pain without sciatica 11/02/2024 Refill [facility] [address] [place] [address] [place] [address] Lakshmi Reynolds, JEFERSON Chronic insomnia 10/18/2024 External PBMM Data [facility] [address] [place] [phone] Pharmacy, Payor Data 10/03/2024 Refill [facility] [address] [place] [address] [place] [address] Lakshmi Reynolds, MOLDING CUTTER Chronic insomnia 09/27/2024 Refill [facility] [address] [place] [address] [place] [address] Lakshmi Reynolds, MOLDING CUTTER from Last 3 Months Immunizations Immunization Administration Dates Next Due COVID-19 ([employer]) Purple Cap Monovalent 12/09/19 21,05/22/2020,05/01/2020 Fluzone High-Dose 65+YRS 12/28/2023,12/06/2019 Fluzone High-Dose 65+yrs 11/30/2022,11/23/2021,0 12/06/2019 Influenza, Unspecified 11/21/2020 Pneumococcal, Unspecified 05/01/2012 Family History Medical History Relation Name Comments Asthma Father Chaka Go Hyperlipidemia Father Chaka Go Heart disease Other grandparents Colon polyps Sister Relation Name Status Comments Father Chaka Go Other grandparents Sister Social History Tobacco Use Types Packs/Day Years Used Date Smoking Tobacco: Never Passive Smoke Exposure: Past Smokeless Tobacco: Never Tobacco Cessation:Counseling Given: Not Answered Alcohol Use Standard Drinks/Week Comments Never 0 [...] Sign Reading Time Taken Comments Blood Pressure 138/84 09/05/2024 1:59 PM EDT Pulse 74 2024 2:47 PM EDT Temperature 36.6 C (97.9 F) 2024 2:47 PM EDT Respiratory Rate 16 2024 2:47 PM EDT Oxygen Saturation 98% 2024 2:47 PM EDT Inhaled Oxygen Concentration - - Weight 86.2 kg (190 lb) 2024 2:47 PM EDT Height 157.5 cm (5' 2 ) 2024 2:47 PM EDT Body Mass Index 34.75 2024 2:47 PM EDT Plan of Treatment Upcoming Encounters Date Type Department Care Team (Late st Contact Info) Description 01/07/2025 2:00 PM EDT Office Visit [facility] [address] [place] [phone] Lakshmi Reynolds, JEFERSON [address] [place] [address] 04/08/2025 2:30 PM EST Office Visit [facility] [address] [address] Cordell Manzano MD [address] [address] Health Maintenance Due Date Last Done Comments COLOGUARD 1994 COLON CANCER SCREENING [address] COLONOGRAPHY 1994 FECAL OCCULT BLOOD TEST 1994 FIT Testing (1 year) 1994 INFLUENZA VACCINE 10/12/2024 12/28/2023, , 11/23/2021, Additional history exists RSV Vaccine - Adults (1 - 1-dose 75+ series) 2024 COVID-19 Vaccine (4 - season) 2024 12/08/2020, 05/22/2020, 05/01/2020 ZOSTER VACCINE (1 of 2) 01/16/2025 Post poned from 11/09/1999 (Patient Refused) ANNUAL WELLNESS VISIT 01/17/2025 01/18/2024, 023 TDAP/TD VACCINES (1 - Tdap) 01/17/2025 Postponed from 1968 (Patient Refused) Pneumococcal Vaccine 50+ (1 of 1 - PCV) 03/04/2025 05/01/2012 Postponed from 11/09/1999 (Patient Refused) DXA SCAN 01/15/2026 01/16/2024 COLONOSCOPY 09/04/2031 09/03/2021, 09/03/2021 COLORECTAL CANCER SCREENING 09/04/2031 HEPATITIS C SCREENING Completed 09/28/2022 MAMMOGRAM Discontinued 12/17/2022, 1008/2022, 07/15/2022, Additional history exists Procedures Procedure Name Priority Date/Time Associated Diagnosis Comments POCT URINALYSIS DIPSTICK, MANUAL Routine 2024 2:58 PM EDT Dysuria SCANNED - DEXA Routine 01/16/2024 1:30 PM EST HEPATITIS C ANTIBODY Routine 09/28/2022 9:35 AM EDT Need for hepatitis C screening test SCANNED - MAMMO 01/08/2022 HM COLONOSCOPY Routine 09/03/2021 from Last 3 Months or Most Recently Relevant to Health Maintenance Results * (ABNORMAL) POC Urinalysis Dipstick (2024 2:58 PM EDT) Glucose, UA Negative Negative mg/dL [facility] Bilirubin Negative Negative [facility] Ketones, UA Negative Negative [facility] Specific Gibson 1.030 1.005 - 1.030 [facility] Blood, UA 1+(A) Negative [facility] pH, Urine 5.5 5.0 - 8.0 [facility] Protein, POC 1+(A) Negative mg/dL [facility] Urobilinogen, UA 0.2 E.U./dL Normal, 0.2 E.U./dL [facility] Leukocytes Small (1+)(A) Negative [facility] Nitrite, UA Positive(A) Negative [facility] Urine 2024 2:58 PM EDT Lakshmi Reynolds MOLDING CUTTER POINT OF CARE TEST ORDERABL ES Final Result [facility]
[address] [place] [address], * DEXA Scan (01/16/2024 1:30 PM EST) Anatomical Region Laterality Modality Other Historical Provider CHART REVIEW TABS Ana stark Result * Hepatitis C Antibody (09/28/2022 9:35 AM EDT) Hep C Virus Ab Non Reactive Non Reactive [facility] Comment: HCV antibody alone does not differentiate between previously resolved infection and active infection. Equivocal and Reactive HCV antibody results should be followed up with an HCV RNA test to support the diagnosis of active HCV infection. Blood Structure of left upper limb / Unknown 09/28/2022 9:35 AM EDT 09/29/2022 Comment:Blood Manual Differe n Narrative [facility] - 09/29/2022 10:07 AM EDT Performed at: 01 - [facility] [address], [place], [place] [id number] Filing And Polishing Supervisor: Alejandro Cruz PhD, Phone: [phone] Lakshmi Reynolds APRN LAB BLOOD ORDERABLES Final Result [facility] [address] [place] [address], [facility] [address] [place] [address], * SCANNED - MAMMO (01/08/2022) Anatomical Region Laterality Modality Other Lakshmi Reynolds APRN CHART REVIEW TABS Final Result * COLONOSCOPY (09/03/2021) [facility] Colonoscopy SEE REPORT Historical Provider MD HEALTH MAINTENANCE Final Result from Last 3 Months or Most Recently Relevant to Health Maintenance Insurance [employer] O Care Teams Safety Leader Relationship Specialty Start Date End Date Lakshmi Reynolds APRN [address] [place] [id number] PCP - General Family Medicine 01/06/22
--- OUTSIDE RECORDS SUMMARY | 2024-12-14 12:12 | XMS_ITS | Encounter Summary ---
Author Organization [facility] Address [address] [place] [address] Care Team Providers Care Academic Counselor Name Role Phone Lakshmi Reynolds CLEANING SUPERVISOR Primary Care Provider [phone] Reason for Visit * Reason Comments Med Refill Encounter Details Date Type Department Care Team (Late st Contact Info) Description 12/04/2024 Refill [facility] [address] [place] [phone] Lakshmi Reynolds APRN [address] [place], [place] [phone] Chronic insomnia Social History Tobacco Use Types [...] encounter Miscellaneous Notes * Telephone Encounter - Marii Carrion - 12/04/2024 8:20 AM EDT Last seen on 2024. Follow up scheduled for 01/07/2025. TF documented in this encounter Plan of Treatment Upcoming Encounters Date Type Department Care Team (Late st Contact Info) Description 01/07/2025 2:00 PM EDT Office Visit [facility] [address] [place] [phone] Lakshmi Reynolds APRN [address] [place] [address] 04/08/2025 2:30 PM EST Office Visit [facility] [address] [address] Cordell Manzano MD [address] [phone] documented as of this encounter Visit Diagnoses Diagnosis Chronic insomnia Insomnia, unspecified documented in this encounter Care Teams Academic Counselor Relationship Specialty Start Date End Date Lakshmi Reynolds APRN [address] [place] [address] PCP - General Family Medicine 01/06/22 documented as of this encounter
--- OUTSIDE RECORDS SUMMARY | 2024-12-14 12:12 | XMS_ITS | Encounter Summary ---
Author Organization [facility] Address [address] [place] [address] Care Team Providers Care Aluminum Polisher Name Role Phone Lakshmi Reynolds APRN Primary Care Provider [phone] Encounter Details Date Type Department Care Team (Latest Contact Info) Description 2024 Travel Social History Tobacco Use Types Packs/Day [...] on file documented as of this encounter Functional Status documented as of this encounter Plan of Treatment Upcoming Encounters Date Type Department Care Team (Late st Contact Info) Description 01/07/2025 2:00 PM EDT Office Visit [facility] [address] [place] [phone] Lakshmi Reynolds APRN [address] [place] [phone] 04/08/2025 2:30 PM EST Office Visit [facility] [address] [address] Cordell Manzano MD [address] [address] documented as of this encounter Visit Diagnoses Not on filedocumented in this encounter Care Teams Aluminum Polisher Relationship Specialty Start Date End Date Lakshmi Reynolds APRN [address] [place] [id number] PCP - General Family Medicine 01/06/22 documented as of this encounter
--- OUTSIDE RECORDS SUMMARY | 2024-12-14 12:12 | XMS_ITS | Encounter Summary ---
Author Organization [facility] Address [address] [place] [address] Care Team Providers Care Coke Burner Name Role Phone Lakshmi Reynolds RECOVERY COORDINATOR Primary Care Provider [phone] Encounter Details Date Type Department Care Team (Late Contact Info) Description 10/18/2024 External PBMM Data [facility] [address] [place] [phone] Pharmacy, Payor Data Social History Tobacco Use Types Packs/Day Years [...] Description 01/07/2025 2:00 PM EDT Office Visit [facility] [address] [place] [phone] Lakshmi Reynolds APRN [address] [place] [address] 04/08/2025 2:30 PM EST Office Visit [facility] [address] [place] [phone] Cordell Manzano MD 330 [facility] [address] [place], [place] [phone] documented as of this encounter Visit Diagnoses Not on filedocumented in this encounter Care Teams Coke Burner Relationship Specialty Start Date End Date Lakshmi Reynolds APRN [address] [place] [address] PCP - General Family Medicine 01/06/22 documented as of this encounter
--- OUTSIDE RECORDS SUMMARY | 2024-12-14 12:12 | XMS_ITS | Encounter Summary ---
Author Organization Healthcare Address [address] [place] [address] Care Team Providers Care Clinical Staff Anesthesiologist Name Role Phone Ahmet Mercado MD Primary Care Provider [phone] Lakshmi Reynolds EXECUTIVE SOUS CHEF Unavailable [phone] Reason for Visit * Reason Comments Med Refill Encounter Details Date Type Department Care Team (Late st Contact Info) Description 07/17/2024 Refill [facility] [address], [address] [place] [address] Millie Garcia MD [address] [place] [address] Social History Tobacco Use Types Packs/Day Years [...] Miscellaneous Notes * Telephone Encounter - Dorene Pastrana - 07/20/2024 4:[address] Garcia sent in another rx on 07/16/24 documented in this encounter Plan of Treatment Upcoming Encounters Date Type Department Care Team (Late st Contact Info) Description 04/15/2025 12:00 PM EST Office Visit [facility] Mineral Metabolism [address] [facility], [address] [place] [address] Millie Garcia MD [address] [place] [address] 08/15/2025 3:00 PM EDT Ovarian Cancer Screening [facility] Gy[facility] [address] , [address] [place] [phone] documented as of this encounter Visit Diagnoses Not on filedocumented in this encounter Additional Health Concerns Assessment Noted Time A fall risk assessment has been complete d for the patient 07/16/2024 12:08 PM EDT A Body Mass Index follow-up plan has been documented for the patient 07/16/2024 12:55 PM EDT documented as of this encounter Care Teams Clinical Staff Anesthesiologist Relationship Specialty Start Date End Date Ahmet Mercado MD [address] [place] [address] PCP - General 12/14/21 Lakshmi Reynolds APRN [address] [place] [address] Referring Physician 11/15/24 documented as of this encounter
--- OUTSIDE RECORDS SUMMARY | 2024-12-14 12:12 | XMS_ITS | Encounter Summary ---
Author Organization [facility] Address [address] [place] [address] Care Team Providers Care Scorer Single Name Role Phone Lakshmi Reynolds APRN Primary Care Provider [phone] Reason for Referral * Consultation (Routine) - Authorized - Pending Scheduling Specialty Diagnoses / Procedures Referred By Jero krause Referred To Contact Gastroenterology Diagnoses Irritable bowel syndrome with constipation Procedures NE OFFICE/OUTPATIENT NEW MODERATE MDM 45 MINUTES Lakshmi Reynolds APRN [address] [place] [address] Phone: tel: fax: Heriberto Gardiner MD [address] [place] [address] Phone: tel: fax: Referral ID Status Reason Start Date Expiration Date Visits Requested Visits Authorized Authorized - Pending Scheduling Specialty Services Required 12/06/2024 03/07/2026 1 1 Encounter Details Date Type Department Care Team (Late st Contact Info) Description 12/06/2024 Telephone [facility] [address] [place] [phone] Lakshmi Reynolds APRN [address] [place] [phone] Social History Tobacco Use Types Packs/Day Years [...] encounter Miscellaneous Notes * Telephone Encounter - Deisi Guzmán RegSched Rep - 12/06/2024 11:57 AM EDT PATIENT WOULD LIKE REFERRAL TO [facility]. PLEASE ADVISE documented in this encounter Plan of Treatment Upcoming Encounters Date Type Department Care Team (Late st Contact Info) Description 01/07/2025 2:00 PM EDT Office Visit [facility] [address] [place] [phone] Lakshmi Reynolds APRN [address] [place] [address] 04/08/2025 2:30 PM EST Office Visit [facility] [address] [place] [phone] Cordell Manzano MD [address] [address] documented as of this encounter Visit Diagnoses Diagnosis Irritable bowel syndrome with constipation- Primary Irritable bowel syndrome documented in this encounter Care Teams Scorer Single Relationship Specialty Start Date End Date Lakshmi Reynolds APRN [address] [place] [address] PCP - General Family Medicine 01/06/22 documented as of this encounter
--- OUTSIDE RECORDS SUMMARY | 2024-12-14 12:12 | XMS_ITS | Encounter Summary ---
Author Organization [facility] Address [address] [place] [address] Care Team Providers Care Financial Operations Clerk Name Role Phone Lakshmi Reynolds PUBLICITY WRITER Primary Care Provider [phone] Reason for Visit * Reason Onset Date Comments Med Refill 05/16/2024 Encounter Details Date Type Department Care Team (Late st Contact Info) Description 05/16/2024 Refill [facility] [address] [place] [phone] Lakshmi Reynolds, PUBLICITY WRITER [address] [place], [place] [phone] Acute cystitis with hematuria Social History Tobacco [...] Date Recorded Patient Health Questionnaire-2 Score 0 01/18/2024 Comments Unknown Sex and Gender Information Value Date Recorded Sex Assigned at Not on file Legal Sex Female 9:58 AM EDT Gender Identity Not on file Sexual Orientation Not on file documented as of this encounter Miscellaneous Notes * Telephone Encounter - Carmen Salazar MA - 05/16/2024 9:14 AM EST Patient states that it is not completely cleared up, do you want to send another round? Last visit was on 05/04/2024 documented in this encounter Plan of Treatment Upcoming Encounters Date Type Department Care Team (Late st Contact Info) Description 01/07/2025 2:00 PM EDT Office Visit [facility] [address] [place] [phone] Lakshmi Reynolds APRN [address] [place] [address] 04/08/2025 2:30 PM EST Office Visit [facility] [address] [address] Cordell Manzano MD [address] [phone] documented as of this encounter Visit Diagnoses Diagnosis Acute cystitis with hematuria documented in this encounter Care Teams Financial Operations Clerk Relationship Specialty Start Date End Date Lakshmi Reynolds APRN [address] [place] [address] PCP - General Family Medicine 01/06/22 documented as of this encounter
== END 2024-12-14 23:59 | disposition home or self-care (01) ==
LOC: LAB 12:09
PROVIDERS: PCP Nurse Practitioner; Visit Provider Nurse Practitioner Family
DX: R19.7 Diarrhea, unspecified (principal)
CPT/HCPCS: 87506